=== PATIENT | male | born 2000 | race Caucasian/White ===

== ENCOUNTER 2021-07-07 18:32 | Emergency (ER) | payer OTHER ==
[~2021-07-07] VITALS: Ht 175.3 cm; Wt 162.5 kg
[2021-07-07 20:43] VITALS: BP 157/86
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
== END 2021-07-07 21:20 | disposition home or self-care (01) ==
LOC: ER 18:32
DX: M54.50 Low back pain, unspecified (principal); M54.6 Pain in thoracic spine; Z87.891 Personal history of nicotine dependence; G89.11 Acute pain due to trauma; V49.59XA Passenger injured in collision with other motor vehicles in traffic accident, initial encounter; Y92.488 Other paved roadways as the place of occurrence of the external cause; Y93.89 Activity, other specified; Y99.8 Other external cause status
CPT/HCPCS: 99281